=== PATIENT | female | born 1980 | race Caucasian/White ===

== ENCOUNTER 2022-08-13 16:10 | Emergency (ER) | payer OTHER ==
[2022-08-13 16:28] VITALS: TEMP 98.3; BMI 23.9
[2022-08-13] MEDS ORDERED: SODIUM CHLORIDE 0.9% 500 ML INFUS.BAG IV ONE (16:47)
[2022-08-13] MEDS ORDERED: ACETAMINOPHEN 1000 MG/100 ML BAG IVPB ONE (16:59)
[2022-08-13] MEDS ORDERED: ACETAMINOPHEN INJECTION 100 ML IVPB ONE (17:10)
[2022-08-13] MEDS ORDERED: FAMOTIDINE 20 MG/50 ML IVPB 20 MG/50 ML MG IVPB ONE ×2 (17:14→17:37)
[2022-08-13] MEDS ORDERED: MAG HYDROX/AL HYDROX/SIMETH 30 ML UNIT-DOSE CUP PO ONE (17:14)
[2022-08-13] MEDS ORDERED: MAG HYDROX/AL HYDROX/SIMETH 30 ML UNIT-DOSE CUP ONE (17:37)
[2022-08-13 17:46] LABS: BASO % 0.3 % (0-2.0); EOS % 0.1 % (0-4.5); HEMATOCRIT 38.5 % (32.4-45.2); HEMOGLOBIN 12.4 GM/dL (10.7-15.3); MCH 28.8 pg (25.7-33.7); MCHC 32.2 g/dl (32.0-36.0); MEAN CELL VOLUME 89.5 fl (80-96); MEAN PLT VOLUME 8.7 fl (7.5-11.1); MONO % 11.9 % (3.8-10.2); NEUT % 81.7 % (42.8-82.8); PLATELET COUNT 204 10^3/uL (134-434); RDW 14.3 % (11.6-15.6); WHITE BLOOD COUNT 5.1 K/mm3 (4.0-10.0)
[2022-08-13] MEDS ORDERED: ONDANSETRON 4 MG/2 ML VIAL IVPUSH ONE (17:49)
[2022-08-13 18:04] LABS: CHLORIDE 107 mmol/L (98-107); SODIUM 137 mmol/L (136-145)
[2022-08-13 18:06] LABS: CALCIUM 8.6 mg/dL (8.5-10.1)
[2022-08-13 18:07] LABS: ALBUMIN 2.7 g/dl (3.4-5.0); BLOOD UREA NITROGEN 17.8 mg/dL (7-18); CO2 21 mmol/L (21-32); GLUCOSE,RANDOM 73 mg/dL (74-106)
[2022-08-13 18:11] LABS: SGOT/AST 52 U/L (15-37)
[2022-08-13 18:12] LABS: BILIRUBIN,TOTAL 0.6 mg/dL (0.2-1); TOT PROT 6.6 g/dl (6.4-8.2)
[2022-08-13 18:13] LABS: ALK PHOS 62 U/L (45-117)
[2022-08-13] MEDS ORDERED: ONDANSETRON 4 MG/2 ML VIAL ONE (18:13)
[2022-08-13 18:19] LABS: ANION GAP 9 MMOL/L (8-16); SGPT/ALT 13 U/L (13-61)
[2022-08-13] MEDS ORDERED: ALBUTEROL SO4 2.5/IPRATROPIUM 0.5 INH SOL 3 ML VIAL.NEB. NEB ONE ×2 (18:35→19:08)
[2022-08-13 19:39] LABS: CALCIUM 7.8 mg/dL (8.5-10.1)
[2022-08-13 19:40] LABS: BLOOD UREA NITROGEN 17.9 mg/dL (7-18)
[2022-08-13 19:43] LABS: CREATININE 0.8 mg/dL (0.55-1.3)
[2022-08-13 20:25] LABS: EPI CELLS >36 /uL (0-25.1); HYALINE CASTS 1 /uL (0-3.1); PH,URINE 5.5 (5.0-8.0); URINE APPEARANCE CLEAR; URINE BACTERIA 44 /uL (0-1359); URINE BILIRUBIN NEGATIVE (NEGATIVE); URINE COLOR YELLOW; URINE GLUCOSE (UA) NEGATIVE (NEGATIVE); URINE KETONE TRACE (NEGATIVE); URINE LEUK ESTERASE TRACE (NEGATIVE); URINE NITRITE NEGATIVE (NEGATIVE); URINE PROTEIN TRACE (NEGATIVE); URINE RBC 36 /uL (0-23.9); URINE UROBILINOGEN 0.2 mg/dL (0.2-1.0); URINE WBC 165 /uL (0-25.8)
[2022-08-13 21:31] VITALS: BP 108/68; PULSE 90; RESP 18
== END 2022-08-13 21:30 | disposition home or self-care (01) ==
LOC: JER 16:10
PROC: 3E033GC Introduction of Other Therapeutic Substance into Peripheral Vein, Percutaneous Approach (ICD-10-PCS; principal; 2022-08-13)
PROC: 3E0F7GC Introduction of Other Therapeutic Substance into Respiratory Tract, Via Natural or Artificial Opening (ICD-10-PCS; 2022-08-13)
DX: U07.1 COVID-19 (principal); R53.1 Weakness
CPT/HCPCS: 0241U-QW; 36415; 71045-TC-FY; 80048; 80053; 81003; 82550; 83605; 84484; 84703; 85025; 87086; 87186; 93005; 93010; 99285-25

== ENCOUNTER 2022-08-20 15:20 | Inpatient (IN) | payer OTHER ==
[2022-08-20 15:55] VITALS: BMI 23.0
[2022-08-20] MEDS ORDERED: LACTATED RINGERS SOLUTION 1000 ML INFUS.BAG IV ONE (16:51)
[2022-08-20] MEDS ORDERED: ACETAMINOPHEN 1000 MG/100 ML BAG IVPB ONE (16:52)
[2022-08-20] MEDS ORDERED: ONDANSETRON 4 MG/2 ML VIAL IVPUSH ONE (16:53)
[2022-08-20] MEDS ORDERED: methylPREDNISolone NA SUCC 125 MG/2 ML VIAL IVPB ONE (16:58)
[2022-08-20] MEDS ORDERED: ACETAMINOPHEN INJECTION 100 ML IVPB ONE (17:10)
[2022-08-20] MEDS ORDERED: ONDANSETRON 4 MG/2 ML VIAL ONE (17:11)
[2022-08-20] MEDS ORDERED: methylPREDNISolone NA SUCC 125 MG/2 ML VIAL ONE (17:11)
[2022-08-20 17:56] LABS: BASO % 0.4 % (0-2.0); EOS % 0.1 % (0-4.5); HEMATOCRIT 35.3 % (32.4-45.2); HEMOGLOBIN 11.9 GM/dL (10.7-15.3); LYMPH % 4.5 % (8-40); MCH 29.9 pg (25.7-33.7); MCHC 33.8 g/dl (32.0-36.0); MEAN CELL VOLUME 88.4 fl (80-96); MEAN PLT VOLUME 9.7 fl (7.5-11.1); MONO % 9.5 % (3.8-10.2); NEUT % 85.5 % (42.8-82.8); PLATELET COUNT 235 10^3/uL (134-434); RBC 3.99 M/mm3 (3.60-5.2); RDW 14.5 % (11.6-15.6); WHITE BLOOD COUNT 4.4 K/mm3 (4.0-10.0)
[2022-08-20 18:13] LABS: INR 1.01 (0.83-1.09); PROTHROMBIN TIME (PATIENT) 11.6 SEC (9.7-13.0)
[2022-08-20 18:16] LABS: ACTIVATED PTT 30.6 SECONDS (25.2-36.5)
[2022-08-20 18:18] LABS: ALBUMIN 2.8 g/dl (3.4-5.0); CALCIUM 8.7 mg/dL (8.5-10.1)
[2022-08-20 18:19] LABS: BLOOD UREA NITROGEN 33.3 mg/dL (7-18)
[2022-08-20 18:21] LABS: CREATININE 1.2 mg/dL (0.55-1.3)
[2022-08-20 18:23] LABS: BILIRUBIN,TOTAL 0.3 mg/dL (0.2-1); TOT PROT 5.9 g/dl (6.4-8.2)
[2022-08-20 18:25] LABS: N-TERMINAL BNP 139.7 pg/ml (5-125)
[2022-08-20] MEDS ORDERED: CEFTRIAXONE 1 GM in DEXTROSE 5%-WATER - 100 ML IVPB ONE (21:37)
[2022-08-20] MEDS ORDERED: AZITHROMYCIN IVPB 500 MG in DEXTROSE 5%-WATER - 250 ML IVPB ONE (21:38)
[2022-08-20] MEDS ORDERED: AZITHROMYCIN IVPB 500 MG/250 ML BAG IVPB ONE (22:02)
[2022-08-20] MEDS ORDERED: CEFTRIAXONE 1 GM/50 ML BAG ONE (22:02)
[2022-08-20 22:19] LABS: PH,URINE 5.5 (5.0-8.0); URINE APPEARANCE CLEAR; URINE BILIRUBIN NEGATIVE (NEGATIVE); URINE COLOR YELLOW; URINE GLUCOSE (UA) NEGATIVE (NEGATIVE); URINE KETONE NEGATIVE (NEGATIVE); URINE LEUK ESTERASE NEGATIVE (NEGATIVE); URINE NITRITE NEGATIVE (NEGATIVE); URINE PROTEIN NEGATIVE (NEGATIVE); URINE UROBILINOGEN 0.2 mg/dL (0.2-1.0)
[2022-08-21] MEDS ORDERED: ONDANSETRON 4 MG/2 ML VIAL IVPUSH PRN (04:20)
[2022-08-21] MEDS ORDERED: ACETAMINOPHEN 650 MG/20.3 ML ORAL SOLUTION (CUPS) PO PRN (05:10)
[2022-08-21] MEDS ORDERED: ACETAMINOPHEN 325 MG TABLET (FP) ONE (05:22)
[2022-08-21 06:13] LABS: HCG,QUALITATIVE URINE Negative
[2022-08-21] MEDS ORDERED: ALBUTEROL SO4 HFA INHALER IH PRN (06:22)
[2022-08-21] MEDS ORDERED: HEPARIN NA (PORCINE) 5,000 UNITS/ML 1ML VIAL ONE (06:50)
[2022-08-21] MEDS: DEXTROSE 5%-LACTATED RINGERS 1,000 ML IV SCH ×2 (06:55→21:59)
[2022-08-21] MEDS: HEPARIN NA (PORCINE) 5,000 UNITS/ML 1ML VIAL SQ SCH ×3 (06:55→21:29)
[2022-08-21] MEDS ORDERED: predniSONE 20 MG TABLET (UD) ONE (08:48)
[2022-08-21] MEDS ORDERED: FAMOTIDINE 20 MG/50 ML IVPB 20 MG/50 ML MG IVPB ONE (08:48)
[2022-08-21] MEDS ORDERED: PANTOPRAZOLE 40 MG TABLET PO ONE (08:48)
[2022-08-21] MEDS ORDERED: PANTOPRAZOLE 20 MG TABLET PO ONE (09:22)
[2022-08-21] MEDS: HYDROXYCHLOROQUINE SO4 200 MG TABLET (FP) PO SCH ×2 (09:24→22:37)
[2022-08-21] MEDS: predniSONE 20 MG TABLET (UD) PO SCH ×2 (09:24→21:29)
[2022-08-21] MEDS: azaTHIOprine 50 MG TABLET PO SCH (09:24)
[2022-08-21] MEDS: PANTOPRAZOLE 20 MG TABLET PO SCH (09:24)
[2022-08-21] MEDS: FAMOTIDINE 20 MG/50 ML IVPB 20 MG/50 ML MG IVPB SCH ×2 (09:24→21:28)
[2022-08-21 09:33] LABS: HEMATOCRIT 33.2 % (32.4-45.2); HEMOGLOBIN 11.1 GM/dL (10.7-15.3); MCH 29.5 pg (25.7-33.7); MCHC 33.4 g/dl (32.0-36.0); MEAN CELL VOLUME 88.3 fl (80-96); MEAN PLT VOLUME 9.3 fl (7.5-11.1); PLATELET COUNT 223 10^3/uL (134-434); RBC 3.76 M/mm3 (3.60-5.2); RDW 14.4 % (11.6-15.6)
[2022-08-21 09:38] LABS: WHITE BLOOD COUNT 1.6 K/mm3 (4.0-10.0)
[2022-08-21 09:55] LABS: BLOOD UREA NITROGEN 26.4 mg/dL (7-18); CALCIUM 8.3 mg/dL (8.5-10.1)
[2022-08-21 09:56] LABS: ALBUMIN 2.7 g/dl (3.4-5.0)
[2022-08-21 09:58] LABS: PHOSPHOROUS 3.8 mg/dL (2.5-4.9)
[2022-08-21 10:00] LABS: TOT PROT 5.7 g/dl (6.4-8.2)
[2022-08-21 10:04] LABS: BILIRUBIN,TOTAL 0.3 mg/dL (0.2-1)
[2022-08-21 10:28] LABS: ANISOCYTOSIS 0; MACROCYTOSIS 0
[2022-08-21] MEDS ORDERED: PNEUMOC 20-VAL CONJ-DIP CRM/PF 0.5 ML SYRINGE IM ONE (19:18)
[2022-08-21] MEDS ORDERED: FLU VACC QS2022-23(6MOS UP)/PF 60 MCG/0.5 ML SYRINGE IM ONE (20:00)
[2022-08-21] MEDS: PIPERACILLIN/TAZOB 3.375 GM 3.375 GM in DEXTROSE 5%-WATER - 50 ML IVPB SCH (20:05)
[2022-08-21] MEDS: oxyCODONE HCL 5 MG TABLET PO PRN (22:34)
[2022-08-21] MEDS: ZOLPIDEM TARTRATE 5 MG TABLET PO PRN (22:34)
[2022-08-22] MEDS: PIPERACILLIN/TAZOB 3.375 GM 3.375 GM in DEXTROSE 5%-WATER - 50 ML IVPB SCH ×2 (03:17→11:28)
[2022-08-22] MEDS: HEPARIN NA (PORCINE) 5,000 UNITS/ML 1ML VIAL SQ SCH ×3 (05:34→21:43)
[2022-08-22 09:05] LABS: BASO % 0.1 % (0-2.0); HEMATOCRIT 36.9 % (32.4-45.2); HEMOGLOBIN 12.1 GM/dL (10.7-15.3); LYMPH % 3.7 % (8-40); MCH 29.2 pg (25.7-33.7); MCHC 32.7 g/dl (32.0-36.0); MEAN CELL VOLUME 89.2 fl (80-96); MEAN PLT VOLUME 9.6 fl (7.5-11.1); MONO % 5.7 % (3.8-10.2); NEUT % 90.5 % (42.8-82.8); PLATELET COUNT 314 10^3/uL (134-434); RBC 4.14 M/mm3 (3.60-5.2); RDW 14.5 % (11.6-15.6); WHITE BLOOD COUNT 6.8 K/mm3 (4.0-10.0)
[2022-08-22] MEDS: FAMOTIDINE 20 MG/50 ML IVPB 20 MG/50 ML MG IVPB SCH ×2 (11:26→21:43)
[2022-08-22] MEDS: HYDROXYCHLOROQUINE SO4 200 MG TABLET (FP) PO SCH ×2 (11:27→22:07)
[2022-08-22] MEDS: PANTOPRAZOLE 20 MG TABLET PO SCH (11:27)
[2022-08-22] MEDS: azaTHIOprine 50 MG TABLET PO SCH (11:27)
[2022-08-22] MEDS: predniSONE 20 MG TABLET (UD) PO SCH ×2 (11:27→21:44)
[2022-08-22] MEDS: DEXTROSE 5%-LACTATED RINGERS 1,000 ML IV SCH (14:54)
[2022-08-22] MEDS ORDERED: CEFPODOXIME PROXETIL 100 MG TABLET PO ONE (18:00)
[2022-08-22] MEDS: ACETAMINOPHEN 325 MG TABLET (FP) PO PRN (21:43)
[2022-08-22] MEDS: ZOLPIDEM TARTRATE 5 MG TABLET PO PRN (21:44)
[2022-08-22] MEDS: oxyCODONE HCL 5 MG TABLET PO PRN (21:44)
[2022-08-23] MEDS: HEPARIN NA (PORCINE) 5,000 UNITS/ML 1ML VIAL SQ SCH ×3 (05:36→21:47)
[2022-08-23] MEDS: DEXTROSE 5%-LACTATED RINGERS 1,000 ML IV SCH (05:37)
[2022-08-23] MEDS: predniSONE 20 MG TABLET (UD) PO SCH ×2 (09:44→21:47)
[2022-08-23] MEDS: PANTOPRAZOLE 40 MG TABLET PO SCH (09:44)
[2022-08-23] MEDS: HYDROXYCHLOROQUINE SO4 200 MG TABLET (FP) PO SCH ×2 (09:44→21:47)
[2022-08-23] MEDS ORDERED: CEFPODOXIME PROXETIL 100 MG TABLET PO SCH (10:00)
[2022-08-23] MEDS: azaTHIOprine 50 MG TABLET PO SCH (11:46)
[2022-08-23] MEDS ORDERED: CEFPODOXIME PROXETIL 200 MG TABLET [NF] PO ONE (12:00)
[2022-08-23] MEDS: BACITRACIN ZINC 15 GM TUBE TOPICAL OINTMENT TP SCH (12:28)
[2022-08-23 13:08] LABS: HEMOGLOBIN 10.9 GM/dL (10.7-15.3); MCH 29.4 pg (25.7-33.7); MEAN CELL VOLUME 89.3 fl (80-96); MEAN PLT VOLUME 9.2 fl (7.5-11.1); PLATELET COUNT 231 10^3/uL (134-434); RBC 3.69 M/mm3 (3.60-5.2); RDW 14.2 % (11.6-15.6); WHITE BLOOD COUNT 6.2 K/mm3 (4.0-10.0)
[2022-08-23 13:30] LABS: CALCIUM 8.3 mg/dL (8.5-10.1)
[2022-08-23 13:31] LABS: BLOOD UREA NITROGEN 15.5 mg/dL (7-18)
[2022-08-23 13:34] LABS: CREATININE 0.8 mg/dL (0.55-1.3)
[2022-08-23 14:09] LABS: ANISOCYTOSIS 0; HELMET CELLS 0; HOWELL-JOLLY BODIES 0; MACROCYTOSIS 0; OVALOCYTE 0; ROULEAU 0; SICKELED CELLS 0; TARGET CELLS 0; TEAR DROP CELLS 0; TOXIC GRANULATION 0
[2022-08-23] MEDS: CEFPODOXIME PROXETIL 200 MG TABLET [NF] PO SCH (17:47)
[2022-08-23] MEDS: oxyCODONE HCL 5 MG TABLET PO PRN (23:37)
[2022-08-23] MEDS: ZOLPIDEM TARTRATE 5 MG TABLET PO PRN (23:37)
[2022-08-24] MEDS: HEPARIN NA (PORCINE) 5,000 UNITS/ML 1ML VIAL SQ SCH ×3 (05:32→21:56)
[2022-08-24] MEDS: CEFPODOXIME PROXETIL 200 MG TABLET [NF] PO SCH ×2 (09:02→17:43)
[2022-08-24] MEDS: PANTOPRAZOLE 40 MG TABLET PO SCH (09:03)
[2022-08-24] MEDS: predniSONE 20 MG TABLET (UD) PO SCH ×2 (09:03→21:56)
[2022-08-24] MEDS: HYDROXYCHLOROQUINE SO4 200 MG TABLET (FP) PO SCH ×2 (09:03→21:56)
[2022-08-24] MEDS: azaTHIOprine 50 MG TABLET PO SCH (09:04)
[2022-08-24] MEDS: BACITRACIN ZINC 15 GM TUBE TOPICAL OINTMENT TP SCH (09:21)
[2022-08-24] MEDS: FLUCONAZOLE 100 MG/NS 50 ML IVPB SCH (20:50)
[2022-08-24] MEDS: ZOLPIDEM TARTRATE 5 MG TABLET PO PRN (22:01)
[2022-08-25] MEDS: HEPARIN NA (PORCINE) 5,000 UNITS/ML 1ML VIAL SQ SCH ×3 (05:36→21:53)
[2022-08-25] MEDS: CEFPODOXIME PROXETIL 200 MG TABLET [NF] PO SCH ×2 (08:39→17:07)
[2022-08-25 09:04] LABS: HEMATOCRIT 35.4 % (32.4-45.2); HEMOGLOBIN 11.6 GM/dL (10.7-15.3); MCH 29.3 pg (25.7-33.7); MCHC 32.8 g/dl (32.0-36.0); MEAN CELL VOLUME 89.2 fl (80-96); PLATELET COUNT 240 10^3/uL (134-434); RBC 3.97 M/mm3 (3.60-5.2); RDW 14.3 % (11.6-15.6); WHITE BLOOD COUNT 3.7 K/mm3 (4.0-10.0)
[2022-08-25 09:26] LABS: ALBUMIN 2.3 g/dl (3.4-5.0); CALCIUM 8.5 mg/dL (8.5-10.1)
[2022-08-25 09:27] LABS: BLOOD UREA NITROGEN 15.6 mg/dL (7-18); MAGNESIUM 1.8 mg/dL (1.8-2.4)
[2022-08-25 09:29] LABS: CREATININE 0.8 mg/dL (0.55-1.3); PHOSPHOROUS 3.6 mg/dL (2.5-4.9)
[2022-08-25 09:31] LABS: BILIRUBIN,TOTAL 0.3 mg/dL (0.2-1)
[2022-08-25] MEDS: BACITRACIN ZINC 15 GM TUBE TOPICAL OINTMENT TP SCH (11:16)
[2022-08-25] MEDS: azaTHIOprine 50 MG TABLET PO SCH (11:17)
[2022-08-25] MEDS: predniSONE 20 MG TABLET (UD) PO SCH ×2 (11:17→21:53)
[2022-08-25] MEDS: HYDROXYCHLOROQUINE SO4 200 MG TABLET (FP) PO SCH ×2 (11:17→21:53)
[2022-08-25] MEDS: PANTOPRAZOLE 40 MG TABLET PO SCH (11:17)
[2022-08-25] MEDS: FLUCONAZOLE 100 MG/NS 50 ML IVPB SCH ×2 (11:18→13:09)
[2022-08-25] MEDS: ACETAMINOPHEN 325 MG TABLET (FP) PO PRN (22:45)
[2022-08-25] MEDS: ZOLPIDEM TARTRATE 5 MG TABLET PO PRN (22:45)
[2022-08-25] MEDS: oxyCODONE HCL 5 MG TABLET PO PRN (22:45)
[2022-08-26] MEDS: HEPARIN NA (PORCINE) 5,000 UNITS/ML 1ML VIAL SQ SCH ×3 (05:59→21:05)
[2022-08-26] MEDS: CEFPODOXIME PROXETIL 200 MG TABLET [NF] PO SCH ×2 (08:24→17:20)
[2022-08-26] MEDS ORDERED: SODIUM CHLORIDE 1,000 ML IV STA (09:09)
[2022-08-26 09:11] LABS: MCH 29.5 pg (25.7-33.7); MCHC 33.3 g/dl (32.0-36.0); MEAN CELL VOLUME 88.6 fl (80-96); MEAN PLT VOLUME 9.6 fl (7.5-11.1); PLATELET COUNT 296 10^3/uL (134-434); RDW 14.3 % (11.6-15.6); WHITE BLOOD COUNT 4.5 K/mm3 (4.0-10.0)
[2022-08-26] MEDS: PANTOPRAZOLE 40 MG TABLET PO SCH (09:23)
[2022-08-26] MEDS: predniSONE 20 MG TABLET (UD) PO SCH (09:23)
[2022-08-26] MEDS: azaTHIOprine 50 MG TABLET PO SCH (09:24)
[2022-08-26] MEDS: HYDROXYCHLOROQUINE SO4 200 MG TABLET (FP) PO SCH ×2 (09:24→21:05)
[2022-08-26] MEDS: BACITRACIN ZINC 15 GM TUBE TOPICAL OINTMENT TP SCH (09:26)
[2022-08-26 09:33] LABS: CALCIUM 8.8 mg/dL (8.5-10.1)
[2022-08-26 09:37] LABS: BLOOD UREA NITROGEN 16.4 mg/dL (7-18)
[2022-08-26 09:38] LABS: ALBUMIN 2.6 g/dl (3.4-5.0); MAGNESIUM 1.8 mg/dL (1.8-2.4)
[2022-08-26 09:40] LABS: CREATININE 0.8 mg/dL (0.55-1.3); PHOSPHOROUS 3.6 mg/dL (2.5-4.9)
[2022-08-26 09:41] LABS: TOT PROT 5.6 g/dl (6.4-8.2)
[2022-08-26 09:42] LABS: BILIRUBIN,TOTAL 0.3 mg/dL (0.2-1)
[2022-08-26 10:37] LABS: ANISOCYTOSIS 0; HELMET CELLS 0; HOWELL-JOLLY BODIES 0; MACROCYTOSIS 0; OVALOCYTE 0; ROULEAU 0; SICKELED CELLS 0; TARGET CELLS 0; TEAR DROP CELLS 0; TOXIC GRANULATION 0
[2022-08-26] MEDS ORDERED: ACETAMINOPHEN 650 MG/20.3 ML ORAL SOLUTION (CUPS) PO PRN (23:08)
[2022-08-26] MEDS ORDERED: ONDANSETRON 4 MG/2 ML VIAL IVPUSH PRN (23:08)
[2022-08-26] MEDS ORDERED: ALBUTEROL SO4 HFA INHALER IH PRN (23:08)
[2022-08-26] MEDS: ZOLPIDEM TARTRATE 5 MG TABLET PO PRN (23:41)
[2022-08-27] MEDS: HEPARIN NA (PORCINE) 5,000 UNITS/ML 1ML VIAL SQ SCH ×3 (05:27→21:05)
[2022-08-27] MEDS ORDERED: SODIUM CHLORIDE 500 ML IV STA (05:36)
[2022-08-27 09:26] LABS: HEMATOCRIT 32.6 % (32.4-45.2); MCHC 33.7 g/dl (32.0-36.0); MEAN CELL VOLUME 88.9 fl (80-96); MEAN PLT VOLUME 9.4 fl (7.5-11.1); PLATELET COUNT 224 10^3/uL (134-434); RBC 3.67 M/mm3 (3.60-5.2); RDW 14.5 % (11.6-15.6); WHITE BLOOD COUNT 4.9 K/mm3 (4.0-10.0)
[2022-08-27 09:47] LABS: CALCIUM 7.7 mg/dL (8.5-10.1)
[2022-08-27 09:48] LABS: ALBUMIN 2.1 g/dl (3.4-5.0); MAGNESIUM 1.6 mg/dL (1.8-2.4)
[2022-08-27 09:50] LABS: PHOSPHOROUS 2.3 mg/dL (2.5-4.9)
[2022-08-27 09:51] LABS: CREATININE 0.7 mg/dL (0.55-1.3)
[2022-08-27 09:52] LABS: BILIRUBIN,TOTAL 0.3 mg/dL (0.2-1); TOT PROT 4.5 g/dl (6.4-8.2)
[2022-08-27 10:15] LABS: ANISOCYTOSIS 2+; MACROCYTOSIS 0; OVALOCYTE 1+
[2022-08-27] MEDS: predniSONE 20 MG TABLET (UD) PO SCH (10:34)
[2022-08-27] MEDS: PANTOPRAZOLE 40 MG TABLET PO SCH (10:34)
[2022-08-27] MEDS: azaTHIOprine 50 MG TABLET PO SCH (10:34)
[2022-08-27] MEDS: HYDROXYCHLOROQUINE SO4 200 MG TABLET (FP) PO SCH ×2 (10:35→21:05)
[2022-08-27] MEDS: CEFPODOXIME PROXETIL 200 MG TABLET [NF] PO SCH ×2 (10:36→17:09)
[2022-08-27] MEDS: BACITRACIN ZINC 15 GM TUBE TOPICAL OINTMENT TP SCH ×2 (10:36→10:53)
[2022-08-27] MEDS ORDERED: MAGNESIUM SULF 50% (8.12 MEQ/2 ML-1 GM VIAL) IVPB ONE (14:33)
[2022-08-27] MEDS: MIDODRINE HCL 2.5 MG TABLET PO SCH (17:09)
[2022-08-27] MEDS: NYSTATIN 500,000 UNITS/5 ML SUSPENSION PO SCH (17:09)
[2022-08-28] MEDS: ZOLPIDEM TARTRATE 5 MG TABLET PO PRN (00:21)
[2022-08-28] MEDS: NYSTATIN 500,000 UNITS/5 ML SUSPENSION PO SCH ×5 (00:21→23:16)
[2022-08-28] MEDS: oxyCODONE HCL 5 MG TABLET PO PRN ×2 (00:21→12:08)
[2022-08-28] MEDS: ACETAMINOPHEN 325 MG TABLET (FP) PO PRN ×2 (00:26→12:08)
[2022-08-28] MEDS: HEPARIN NA (PORCINE) 5,000 UNITS/ML 1ML VIAL SQ SCH ×3 (06:16→21:13)
[2022-08-28] MEDS: CEFPODOXIME PROXETIL 200 MG TABLET [NF] PO SCH ×2 (09:28→17:03)
[2022-08-28] MEDS: MIDODRINE HCL 2.5 MG TABLET PO SCH ×2 (09:28→18:25)
[2022-08-28] MEDS: PANTOPRAZOLE 40 MG TABLET PO SCH (09:28)
[2022-08-28] MEDS: HYDROXYCHLOROQUINE SO4 200 MG TABLET (FP) PO SCH ×2 (09:28→21:10)
[2022-08-28] MEDS: predniSONE 20 MG TABLET (UD) PO SCH (09:28)
[2022-08-28] MEDS: azaTHIOprine 50 MG TABLET PO SCH (09:28)
[2022-08-28] MEDS: BACITRACIN ZINC 15 GM TUBE TOPICAL OINTMENT TP SCH (09:29)
[2022-08-28 09:48] LABS: BASO % 0.2 % (0-2.0); EOS % 0.5 % (0-4.5); HEMATOCRIT 34.3 % (32.4-45.2); HEMOGLOBIN 11.6 GM/dL (10.7-15.3); LYMPH % 4.7 % (8-40); MCH 30.1 pg (25.7-33.7); MCHC 33.8 g/dl (32.0-36.0); MEAN CELL VOLUME 89.3 fl (80-96); MEAN PLT VOLUME 9.4 fl (7.5-11.1); MONO % 6.4 % (3.8-10.2); NEUT % 88.2 % (42.8-82.8); PLATELET COUNT 236 10^3/uL (134-434); RBC 3.85 M/mm3 (3.60-5.2); RDW 14.2 % (11.6-15.6); WHITE BLOOD COUNT 3.8 K/mm3 (4.0-10.0)
[2022-08-28 10:03] LABS: ALBUMIN 2.4 g/dl (3.4-5.0); BLOOD UREA NITROGEN 10.8 mg/dL (7-18)
[2022-08-28 10:05] LABS: CREATININE 0.8 mg/dL (0.55-1.3)
[2022-08-28 10:06] LABS: PHOSPHOROUS 2.5 mg/dL (2.5-4.9)
[2022-08-28 10:07] LABS: BILIRUBIN,TOTAL 0.4 mg/dL (0.2-1)
[2022-08-28] MEDS: MAG HYDROX/ALH/SMC/DPHA/LIDO 240 ML MOUTHWASH MM SCH ×2 (13:13→17:04)
[2022-08-28] MEDS ORDERED: BENZOCAINE 20 % GEL TUBE MM SCH (13:30)
[2022-08-28] MEDS: BENZOCAINE 20 % GEL TUBE MM SCH ×2 (17:04→23:16)
[2022-08-29] MEDS: ZOLPIDEM TARTRATE 5 MG TABLET PO PRN ×2 (00:18→23:06)
[2022-08-29] MEDS: MAG HYDROX/ALH/SMC/DPHA/LIDO 240 ML MOUTHWASH MM SCH ×5 (00:19→23:05)
[2022-08-29] MEDS: oxyCODONE HCL 5 MG TABLET PO PRN ×2 (00:19→09:39)
[2022-08-29] MEDS: ACETAMINOPHEN 325 MG TABLET (FP) PO PRN (00:23)
[2022-08-29] MEDS: HEPARIN NA (PORCINE) 5,000 UNITS/ML 1ML VIAL SQ SCH ×3 (06:46→21:01)
[2022-08-29] MEDS: BENZOCAINE 20 % GEL TUBE MM SCH ×4 (06:46→23:05)
[2022-08-29] MEDS: NYSTATIN 500,000 UNITS/5 ML SUSPENSION PO SCH ×4 (07:08→23:11)
[2022-08-29] MEDS: CEFPODOXIME PROXETIL 200 MG TABLET [NF] PO SCH ×2 (08:33→17:44)
[2022-08-29 09:19] LABS: BASO % 0.2 % (0-2.0); EOS % 0.4 % (0-4.5); HEMATOCRIT 32.7 % (32.4-45.2); HEMOGLOBIN 11.1 GM/dL (10.7-15.3); LYMPH % 5.2 % (8-40); MCH 30.2 pg (25.7-33.7); MCHC 33.8 g/dl (32.0-36.0); MEAN CELL VOLUME 89.4 fl (80-96); MEAN PLT VOLUME 9.3 fl (7.5-11.1); MONO % 6.9 % (3.8-10.2); NEUT % 87.3 % (42.8-82.8); PLATELET COUNT 174 10^3/uL (134-434); RBC 3.66 M/mm3 (3.60-5.2); RDW 14.6 % (11.6-15.6); WHITE BLOOD COUNT 3.9 K/mm3 (4.0-10.0)
[2022-08-29 09:23] LABS: ALBUMIN 2.3 g/dl (3.4-5.0); BLOOD UREA NITROGEN 11.6 mg/dL (7-18); CALCIUM 7.8 mg/dL (8.5-10.1); MAGNESIUM 1.8 mg/dL (1.8-2.4)
[2022-08-29 09:26] LABS: CREATININE 0.8 mg/dL (0.55-1.3)
[2022-08-29 09:27] LABS: PHOSPHOROUS 2.7 mg/dL (2.5-4.9)
[2022-08-29 09:28] LABS: BILIRUBIN,TOTAL 0.4 mg/dL (0.2-1); TOT PROT 4.7 g/dl (6.4-8.2)
[2022-08-29] MEDS: PANTOPRAZOLE 40 MG TABLET PO SCH (09:32)
[2022-08-29] MEDS: azaTHIOprine 50 MG TABLET PO SCH (09:32)
[2022-08-29] MEDS: HYDROXYCHLOROQUINE SO4 200 MG TABLET (FP) PO SCH ×2 (09:33→21:01)
[2022-08-29] MEDS: predniSONE 20 MG TABLET (UD) PO SCH (09:33)
[2022-08-29] MEDS: FOLIC ACID 1 MG TABLET (FP) PO SCH (09:33)
[2022-08-29] MEDS: BACITRACIN ZINC 15 GM TUBE TOPICAL OINTMENT TP SCH (10:15)
[2022-08-29] MEDS: MULTIVITAMINS (DAILY MVI) TABLET (FP) PO SCH (10:44)
[2022-08-29] MEDS: ZINC SULFATE 220 MG CAPSULE (FP) PO SCH (11:10)
[2022-08-29] MEDS: MIDODRINE HCL 5 MG TABLET PO SCH ×2 (14:33→17:44)
[2022-08-29] MEDS ORDERED: POTASSIUM CHLORIDE TABS 10 MEQ TABLET.ER (FP) PO ONE (14:47)
[2022-08-29] MEDS ORDERED: MAGNESIUM OXIDE 400 MG TABLET (FP) PO ONE (14:49)
[2022-08-30] MEDS: MAG HYDROX/ALH/SMC/DPHA/LIDO 240 ML MOUTHWASH MM SCH ×2 (05:59→12:36)
[2022-08-30] MEDS: BENZOCAINE 20 % GEL TUBE MM SCH ×2 (05:59→12:36)
[2022-08-30] MEDS: NYSTATIN 500,000 UNITS/5 ML SUSPENSION PO SCH ×2 (05:59→12:36)
[2022-08-30] MEDS: HEPARIN NA (PORCINE) 5,000 UNITS/ML 1ML VIAL SQ SCH ×2 (05:59→16:16)
[2022-08-30] MEDS ORDERED: POTASSIUM CHLORIDE TABS 20 MEQ TABLET.ER (FP) PO SCH (10:00)
[2022-08-30] MEDS: predniSONE 20 MG TABLET (UD) PO SCH (10:31)
[2022-08-30] MEDS: MIDODRINE HCL 5 MG TABLET PO SCH ×2 (10:33→14:16)
[2022-08-30] MEDS: FOLIC ACID 1 MG TABLET (FP) PO SCH (10:33)
[2022-08-30] MEDS: MULTIVITAMINS (DAILY MVI) TABLET (FP) PO SCH (10:33)
[2022-08-30] MEDS: PANTOPRAZOLE 40 MG TABLET PO SCH (10:33)
[2022-08-30] MEDS: ZINC SULFATE 220 MG CAPSULE (FP) PO SCH (10:33)
[2022-08-30] MEDS: azaTHIOprine 50 MG TABLET PO SCH (10:34)
[2022-08-30] MEDS: BACITRACIN ZINC 15 GM TUBE TOPICAL OINTMENT TP SCH (10:34)
[2022-08-30] MEDS: HYDROXYCHLOROQUINE SO4 200 MG TABLET (FP) PO SCH (10:34)
[2022-08-30 15:03] VITALS: BP 98/60; PULSE 92; RESP 16; TEMP 100
== END 2022-08-30 19:58 | disposition home or self-care (01) | DRG 193 ==
LOC: JER 15:20 → JERBED 22:31 → J7W 08-21 12:44 → J4S 08-25 22:26
PROVIDERS: ADMIT Internal Medicine; ATTEND Internal Medicine
DX: J18.9 Pneumonia, unspecified organism (principal); E43 Unspecified severe protein-calorie malnutrition; B37.0 Candidal stomatitis; I31.39 Other pericardial effusion (noninflammatory); N17.9 Acute kidney failure, unspecified; R64 Cachexia; U09.9 Post COVID-19 condition, unspecified; M32.9 Systemic lupus erythematosus, unspecified; K52.9 Noninfective gastroenteritis and colitis, unspecified; M32.14 Glomerular disease in systemic lupus erythematosus; K21.9 Gastro-esophageal reflux disease without esophagitis; R13.10 Dysphagia, unspecified; B37.9 Candidiasis, unspecified; I73.00 Raynaud's syndrome without gangrene; R00.1 Bradycardia, unspecified; R07.81 Pleurodynia; K44.9 Diaphragmatic hernia without obstruction or gangrene; K80.20 Calculus of gallbladder without cholecystitis without obstruction; N20.0 Calculus of kidney; M35.00 Sjogren syndrome, unspecified; Z68.20 Body mass index [BMI] 20.0-20.9, adult
CPT/HCPCS: 0241U-QW; 36415; 71045-TC-FY; 71275-TC; 74176-TC; 74220-TC-FY; 74240-TC-FY; 76775-TC; 80048; 80053; 80061; 81003; 82308; 82607; 82746; 83036; 83605; 83690; 83735; 83880; 84100; 84439; 84443; 84481; 84484; 84703; 85025; 85610; 85651; 85730; 86140; 87040; 87086; 93005; 93010; 93306-TC; 97116-GP; 97161-GP; 99285-25; G0008; J1644; Q2036; Q9967

== ENCOUNTER 2022-09-10 18:20 | Inpatient (IN) | payer OTHER ==
[2022-09-10] MEDS ORDERED: ACETAMINOPHEN 1000 MG/100 ML BAG IVPB ONE (20:21)
[2022-09-10] MEDS ORDERED: PANTOPRAZOLE SODIUM 40 MG VIAL IVPUSH ONE (20:22)
[2022-09-10] MEDS ORDERED: ACETAMINOPHEN INJECTION 100 ML IVPB ONE (20:31)
[2022-09-10] MEDS ORDERED: PANTOPRAZOLE SODIUM 40 MG/100 ML BAG IVPB ONE (20:32)
[2022-09-10 21:15] LABS: HEMATOCRIT 32.1 % (32.4-45.2); HEMOGLOBIN 10.6 GM/dL (10.7-15.3); MCH 29.6 pg (25.7-33.7); MCHC 32.9 g/dl (32.0-36.0); MEAN CELL VOLUME 90.1 fl (80-96); MEAN PLT VOLUME 9.7 fl (7.5-11.1); PLATELET COUNT 171 10^3/uL (134-434); RBC 3.56 M/mm3 (3.60-5.2); RDW 15.4 % (11.6-15.6)
[2022-09-10 21:25] LABS: WHITE BLOOD COUNT 0.3 K/mm3 (4.0-10.0)
[2022-09-10 21:52] LABS: ALBUMIN 2.6 g/dl (3.4-5.0); BLOOD UREA NITROGEN 28.7 mg/dL (7-18); CALCIUM 8.6 mg/dL (8.5-10.1)
[2022-09-10 21:56] LABS: CREATININE 1.5 mg/dL (0.55-1.3); MAGNESIUM 2.1 mg/dL (1.8-2.4)
[2022-09-10 21:58] LABS: BILIRUBIN,TOTAL 0.6 mg/dL (0.2-1); TOT PROT 6.3 g/dl (6.4-8.2)
[2022-09-10 21:59] LABS: PHOSPHOROUS 4.1 mg/dL (2.5-4.9)
[2022-09-10 22:50] LABS: ANISOCYTOSIS 1+; MACROCYTOSIS 1+; OVALOCYTE 1+
[2022-09-11] MEDS ORDERED: LACTATED RINGERS SOLUTION 1000 ML INFUS.BAG IV ONE (00:17)
[2022-09-11 01:20] LABS: EPI CELLS 30 /uL (0-25.1); HYALINE CASTS 6 /uL (0-3.1); PH,URINE 5.5 (5.0-8.0); URINE APPEARANCE CLOUDY; URINE BACTERIA 56 /uL (0-1359); URINE BILIRUBIN NEGATIVE (NEGATIVE); URINE COLOR YELLOW; URINE GLUCOSE (UA) NEGATIVE (NEGATIVE); URINE KETONE NEGATIVE (NEGATIVE); URINE LEUK ESTERASE NEGATIVE (NEGATIVE); URINE NITRITE NEGATIVE (NEGATIVE); URINE PROTEIN 1+ (NEGATIVE); URINE RBC 26 /uL (0-23.9); URINE UROBILINOGEN 0.2 mg/dL (0.2-1.0); URINE WBC 13 /uL (0-25.8)
[2022-09-11] MEDS ORDERED: VANCOMYCIN 1 GM in D5W (PRE-DOCKED) 1,000 MG/250 ML IVPB SCH (02:00)
[2022-09-11] MEDS ORDERED: LACTATED RINGERS SOLUTION 1,000 ML/1,000 ML INFUS.BAG IV SCH (02:00)
[2022-09-11] MEDS ORDERED: VANCOMYCIN 500 MG in DEXTROSE 5%-WATER - 100 ML IVPB SCH (02:15)
[2022-09-11] MEDS ORDERED: FLUCONAZOLE 200 MG/NS 100 ML IVPB ONE (02:38)
[2022-09-11] MEDS ORDERED: ONDANSETRON *ODT* 4 MG TABLET SL PRN (03:05)
[2022-09-11] MEDS ORDERED: DOXYCYCLINE INJECTION 100 MG in DEXTROSE 5%-WATER 100 ML IVPB SCH ×2 (03:46→10:00)
[2022-09-11] MEDS ORDERED: PROCHLORPERAZINE INJECTION 10 MG/2 ML VIAL IVPB PRN (04:05)
[2022-09-11] MEDS ORDERED: PIPERACILLIN/TAZOB 2.25 GM 2.25 GM/50 ML BAG IVPB ONE (05:37)
[2022-09-11] MEDS: PIPERACILLIN/TAZOB 2.25 GM 2.25 GM in DEXTROSE 5%-WATER - 50 ML IVPB SCH ×5 (05:41→17:20)
[2022-09-11] MEDS ORDERED: HEPARIN NA (PORCINE) 5,000 UNITS/ML 1ML VIAL ONE (05:43)
[2022-09-11] MEDS ORDERED: NYSTATIN 500,000 UNITS/5 ML SUSPENSION PO SCH (06:00)
[2022-09-11] MEDS: HEPARIN NA (PORCINE) 5,000 UNITS/ML 1ML VIAL SQ SCH ×3 (06:03→22:38)
[2022-09-11 06:48] LABS: HEMATOCRIT 29.4 % (32.4-45.2); HEMOGLOBIN 9.7 GM/dL (10.7-15.3); MCH 29.7 pg (25.7-33.7); MEAN PLT VOLUME 10.3 fl (7.5-11.1); PLATELET COUNT 128 10^3/uL (134-434); RBC 3.27 M/mm3 (3.60-5.2); RDW 15.5 % (11.6-15.6)
[2022-09-11 06:57] LABS: MAGNESIUM 1.9 mg/dL (1.8-2.4)
[2022-09-11 06:58] LABS: CALCIUM 8.3 mg/dL (8.5-10.1)
[2022-09-11 07:00] LABS: ALBUMIN 2.3 g/dl (3.4-5.0); BLOOD UREA NITROGEN 30.4 mg/dL (7-18)
[2022-09-11 07:01] LABS: CREATININE 1.3 mg/dL (0.55-1.3)
[2022-09-11 07:02] LABS: PHOSPHOROUS 4.7 mg/dL (2.5-4.9); TOT PROT 5.2 g/dl (6.4-8.2)
[2022-09-11 07:04] LABS: BILIRUBIN,TOTAL 0.4 mg/dL (0.2-1)
[2022-09-11 07:12] LABS: WHITE BLOOD COUNT 0.4 K/mm3 (4.0-10.0)
[2022-09-11] MEDS ORDERED: TBO-FILGRASTIM 300 MCG/0.5 ML DISP.SYRINGE SQ ONE (08:25)
[2022-09-11 09:23] LABS: ANISOCYTOSIS 2+; MACROCYTOSIS 0; PLATELET ESTIMATE DECREASED
[2022-09-11] MEDS: DEXTROSE 5%-LACTATED RINGERS 1,000 ML IV SCH ×2 (09:38→23:45)
[2022-09-11] MEDS: VANCOMYCIN 500 MG in DEXTROSE 5%-WATER - 100 ML IVPB SCH ×2 (09:39→18:22)
[2022-09-11] MEDS: MIDODRINE HCL 5 MG TABLET PO SCH ×3 (09:50→17:20)
[2022-09-11] MEDS: FOLIC ACID 1 MG TABLET (FP) PO SCH (09:50)
[2022-09-11] MEDS: MULTIVITAMINS (DAILY MVI) TABLET (FP) PO SCH (09:51)
[2022-09-11] MEDS: ZINC SULFATE 220 MG CAPSULE (FP) PO SCH (09:51)
[2022-09-11] MEDS ORDERED: HYDROXYCHLOROQUINE SO4 200 MG TABLET (FP) PO SCH (10:00)
[2022-09-11] MEDS ORDERED: predniSONE 2.5 MG TABLET PO SCH (10:00)
[2022-09-11] MEDS ORDERED: azaTHIOprine 50 MG TABLET PO SCH ×2 (10:00)
[2022-09-11] MEDS ORDERED: ACETAMINOPHEN 1000 MG/100 ML BAG IVPB PRN (10:02)
[2022-09-11] MEDS: ACETAMINOPHEN 1000 MG/100 ML BAG IVPB PRN (10:32)
[2022-09-11] MEDS ORDERED: MAG HYDROX/AL HYDROX/SIMETH 30 ML UNIT-DOSE CUP PO PRN (10:46)
[2022-09-11] MEDS: NYSTATIN 500,000 UNITS/5 ML SUSPENSION PO SCH ×2 (12:11→17:20)
[2022-09-11 13:14] VITALS: BMI 19.1
[2022-09-11] MEDS: ATORVASTATIN CA 20 MG TABLET (FP) PO SCH (22:38)
[2022-09-11] MEDS: FLUCONAZOLE 100 MG/NS 50 ML IVPB SCH (22:38)
[2022-09-11] MEDS: ZOLPIDEM TARTRATE 5 MG TABLET PO PRN (23:45)
[2022-09-12] MEDS: PIPERACILLIN/TAZOB 2.25 GM 2.25 GM in DEXTROSE 5%-WATER - 50 ML IVPB SCH ×4 (00:54→21:06)
[2022-09-12] MEDS: NYSTATIN 500,000 UNITS/5 ML SUSPENSION PO SCH ×5 (00:54→23:08)
[2022-09-12] MEDS: ACETAMINOPHEN 1000 MG/100 ML BAG IVPB PRN (04:47)
[2022-09-12] MEDS: HEPARIN NA (PORCINE) 5,000 UNITS/ML 1ML VIAL SQ SCH ×3 (05:05→21:06)
[2022-09-12] MEDS ORDERED: LACTATED RINGERS SOLUTION 1000 ML INFUS.BAG IV ONE (05:07)
[2022-09-12] MEDS ORDERED: DEXTROSE 5%-LACTATED RINGERS 1,000 ML IV SCH (07:16)
[2022-09-12 09:13] LABS: RBC 3.03 M/mm3 (3.60-5.2)
[2022-09-12 09:14] LABS: HEMATOCRIT 27.2 % (32.4-45.2); HEMOGLOBIN 8.9 GM/dL (10.7-15.3); MCH 29.3 pg (25.7-33.7); MCHC 32.7 g/dl (32.0-36.0); MEAN CELL VOLUME 89.8 fl (80-96); MEAN PLT VOLUME 9.2 fl (7.5-11.1); PLATELET COUNT 117 10^3/uL (134-434); RDW 15.7 % (11.6-15.6)
[2022-09-12 09:25] LABS: WHITE BLOOD COUNT 0.4 K/mm3 (4.0-10.0)
[2022-09-12 10:09] LABS: ANISOCYTOSIS 2+; MACROCYTOSIS 0; OVALOCYTE 1+
[2022-09-12 10:21] LABS: ALBUMIN 1.8 g/dl (3.4-5.0); BILIRUBIN,TOTAL 0.4 mg/dL (0.2-1); BLOOD UREA NITROGEN 17.1 mg/dL (7-18); CALCIUM 7.6 mg/dL (8.5-10.1); MAGNESIUM 1.7 mg/dL (1.8-2.4); TOT PROT 4.4 g/dl (6.4-8.2)
[2022-09-12] MEDS: FOLIC ACID 1 MG TABLET (FP) PO SCH (10:37)
[2022-09-12] MEDS: MIDODRINE HCL 5 MG TABLET PO SCH ×4 (10:37→17:41)
[2022-09-12] MEDS: MULTIVITAMINS (DAILY MVI) TABLET (FP) PO SCH (10:37)
[2022-09-12] MEDS: ZINC SULFATE 220 MG CAPSULE (FP) PO SCH (10:37)
[2022-09-12] MEDS ORDERED: MAGNESIUM 2GM/50ML STERILE WATER IVPB IVPB ONE (10:49)
[2022-09-12] MEDS: POTASSIUM CHLORIDE TABS 20 MEQ TABLET.ER (FP) PO SCH ×2 (11:41→13:17)
[2022-09-12] MEDS: VANCOMYCIN 500 MG in DEXTROSE 5%-WATER 100 ML IVPB SCH ×2 (11:58→23:36)
[2022-09-12] MEDS: TBO-FILGRASTIM 300 MCG/0.5 ML DISP.SYRINGE SQ SCH (12:42)
[2022-09-12] MEDS: PROCHLORPERAZINE INJECTION 10 MG/2 ML VIAL IVPB SCH ×3 (12:56→21:06)
[2022-09-12] MEDS: KCL 10 MEQ IVPB 10 MEQ/100 ML INFUS.BAG IVPB SCH ×3 (13:00→15:34)
[2022-09-12] MEDS: FLUCONAZOLE 100 MG/NS 50 ML IVPB SCH (13:38)
[2022-09-12] MEDS: ACETAMINOPHEN 500 MG TABLET (FP) PO PRN (16:49)
[2022-09-12] MEDS: AMINO ACIDS 4.25%/D5W 1,000 ML IV SCH (16:49)
[2022-09-12] MEDS: AMINO ACIDS/PROTEIN HYDROLYS 30 ML LIQUID.PKT PO SCH (16:50)
[2022-09-12] MEDS: ATORVASTATIN CA 20 MG TABLET (FP) PO SCH (21:06)
[2022-09-13] MEDS: ZOLPIDEM TARTRATE 5 MG TABLET PO PRN (01:40)
[2022-09-13] MEDS: AMINO ACIDS 4.25%/D5W 1,000 ML IV SCH ×3 (02:06→12:22)
[2022-09-13] MEDS: PIPERACILLIN/TAZOB 2.25 GM 2.25 GM in DEXTROSE 5%-WATER - 50 ML IVPB SCH ×4 (02:27→21:48)
[2022-09-13] MEDS: NYSTATIN 500,000 UNITS/5 ML SUSPENSION PO SCH ×3 (06:53→17:05)
[2022-09-13] MEDS: HEPARIN NA (PORCINE) 5,000 UNITS/ML 1ML VIAL SQ SCH ×3 (06:53→21:48)
[2022-09-13] MEDS: ACETAMINOPHEN 500 MG TABLET (FP) PO PRN ×2 (06:53→17:34)
[2022-09-13] MEDS: PROCHLORPERAZINE INJECTION 10 MG/2 ML VIAL IVPB SCH ×4 (06:54→21:48)
[2022-09-13] MEDS: [UNRECOGNIZED DRUG - OTHER] PO SCH ×2 (07:40→07:41)
[2022-09-13] MEDS: AMINO ACIDS/PROTEIN HYDROLYS 30 ML LIQUID.PKT PO SCH ×3 (08:45→17:05)
[2022-09-13 09:59] LABS: HEMATOCRIT 30.8 % (32.4-45.2); MCH 29.7 pg (25.7-33.7); MCHC 32.6 g/dl (32.0-36.0); MEAN CELL VOLUME 91.2 fl (80-96); MEAN PLT VOLUME 9.9 fl (7.5-11.1); PLATELET COUNT 153 10^3/uL (134-434); RBC 3.38 M/mm3 (3.60-5.2)
[2022-09-13] MEDS: FLUCONAZOLE 100 MG/NS 50 ML IVPB SCH (10:04)
[2022-09-13] MEDS: FOLIC ACID 1 MG TABLET (FP) PO SCH (10:07)
[2022-09-13] MEDS: MIDODRINE HCL 5 MG TABLET PO SCH ×3 (10:07→17:05)
[2022-09-13] MEDS: ZINC SULFATE 220 MG CAPSULE (FP) PO SCH (10:07)
[2022-09-13] MEDS: PANTOPRAZOLE 40 MG TABLET PO SCH (10:08)
[2022-09-13] MEDS: MULTIVITAMINS (DAILY MVI) TABLET (FP) PO SCH (10:08)
[2022-09-13 10:21] LABS: WHITE BLOOD COUNT 1.2 K/mm3 (4.0-10.0)
[2022-09-13 10:27] LABS: BLOOD UREA NITROGEN 16.2 mg/dL (7-18)
[2022-09-13 10:28] LABS: CALCIUM 7.8 mg/dL (8.5-10.1)
[2022-09-13 10:31] LABS: CREATININE 0.8 mg/dL (0.55-1.3); MAGNESIUM 1.7 mg/dL (1.8-2.4)
[2022-09-13 10:32] LABS: BILIRUBIN,TOTAL 0.6 mg/dL (0.2-1)
[2022-09-13 11:05] LABS: ANISOCYTOSIS 0; MACROCYTOSIS 0
[2022-09-13] MEDS: TBO-FILGRASTIM 300 MCG/0.5 ML DISP.SYRINGE SQ SCH (11:12)
[2022-09-13] MEDS: VANCOMYCIN 500 MG in DEXTROSE 5%-WATER 100 ML IVPB SCH ×2 (11:12→23:45)
[2022-09-13] MEDS ORDERED: MAGNESIUM 2GM/50ML STERILE WATER IVPB IVPB ONE (11:30)
[2022-09-13 12:02] LABS: PHOSPHOROUS 1.3 mg/dL (2.5-4.9)
[2022-09-13] MEDS: KCL 10 MEQ IVPB 10 MEQ/100 ML INFUS.BAG IVPB SCH ×2 (12:18→14:12)
[2022-09-13 12:54] LABS: HIV INTERPRETATION NEGATIVE (NEGATIVE)
[2022-09-13] MEDS: POTASSIUM CHLORIDE ORAL LIQUID 20 MEQ/15 ML PO SCH ×2 (14:09→21:48)
[2022-09-13] MEDS: NAPH,MB-DB/K PH,MBDB POWDER PACKET PO SCH ×3 (14:09→22:58)
[2022-09-13] MEDS: POTASSIUM CHLORIDE 30 MEQ in AMINO ACIDS 4.25%/D5W 1,000 ML IV SCH (15:59)
[2022-09-13] MEDS: LIDOCAINE 5% TOPICAL PATCH TP SCH (17:33)
[2022-09-13] MEDS: oxyCODONE HCL 5 MG TABLET PO PRN (17:34)
[2022-09-13] MEDS: ATORVASTATIN CA 20 MG TABLET (FP) PO SCH (21:48)
[2022-09-13] MEDS: LIDOCAINE PATCH REMOVAL MC SCH (22:05)
[2022-09-14] MEDS: NYSTATIN 500,000 UNITS/5 ML SUSPENSION PO SCH ×5 (01:01→23:45)
[2022-09-14] MEDS: ZOLPIDEM TARTRATE 5 MG TABLET PO PRN (01:01)
[2022-09-14] MEDS: POTASSIUM CHLORIDE 30 MEQ in AMINO ACIDS 4.25%/D5W 1,000 ML IV SCH (03:21)
[2022-09-14] MEDS: PIPERACILLIN/TAZOB 2.25 GM 2.25 GM in DEXTROSE 5%-WATER - 50 ML IVPB SCH ×4 (03:21→21:28)
[2022-09-14] MEDS: HEPARIN NA (PORCINE) 5,000 UNITS/ML 1ML VIAL SQ SCH ×3 (05:20→21:28)
[2022-09-14] MEDS: NAPH,MB-DB/K PH,MBDB POWDER PACKET PO SCH ×2 (05:20→06:54)
[2022-09-14] MEDS: ACETAMINOPHEN 500 MG TABLET (FP) PO PRN (05:21)
[2022-09-14] MEDS: PROCHLORPERAZINE INJECTION 10 MG/2 ML VIAL IVPB SCH ×4 (06:45→21:29)
[2022-09-14] MEDS: AMINO ACIDS/PROTEIN HYDROLYS 30 ML LIQUID.PKT PO SCH ×4 (08:02→17:39)
[2022-09-14] MEDS: ZINC SULFATE 220 MG CAPSULE (FP) PO SCH (09:56)
[2022-09-14] MEDS: FOLIC ACID 1 MG TABLET (FP) PO SCH (09:56)
[2022-09-14] MEDS: LIDOCAINE 5% TOPICAL PATCH TP SCH (09:56)
[2022-09-14] MEDS: PANTOPRAZOLE 40 MG TABLET PO SCH (09:57)
[2022-09-14] MEDS: MIDODRINE HCL 5 MG TABLET PO SCH ×4 (09:57→17:40)
[2022-09-14] MEDS: MULTIVITAMINS (DAILY MVI) TABLET (FP) PO SCH (09:57)
[2022-09-14 10:25] LABS: HEMATOCRIT 27.2 % (32.4-45.2); HEMOGLOBIN 8.9 GM/dL (10.7-15.3); MCH 29.7 pg (25.7-33.7); MCHC 32.8 g/dl (32.0-36.0); MEAN CELL VOLUME 90.6 fl (80-96); PLATELET COUNT 102 10^3/uL (134-434); RDW 16.1 % (11.6-15.6); WHITE BLOOD COUNT 4.9 K/mm3 (4.0-10.0)
[2022-09-14] MEDS: VANCOMYCIN 500 MG in DEXTROSE 5%-WATER 100 ML IVPB SCH (11:14)
[2022-09-14 11:31] LABS: ANISOCYTOSIS 0; HELMET CELLS 0; HOWELL-JOLLY BODIES 0; MACROCYTOSIS 0; OVALOCYTE 0; ROULEAU 0; SICKELED CELLS 0; TARGET CELLS 0; TEAR DROP CELLS 0; TOXIC GRANULATION 0
[2022-09-14] MEDS: TBO-FILGRASTIM 300 MCG/0.5 ML DISP.SYRINGE SQ SCH (11:37)
[2022-09-14 13:42] LABS: CHLORIDE 117 mmol/L (98-107); SODIUM 141 mmol/L (136-145)
[2022-09-14 13:44] LABS: CALCIUM 7.7 mg/dL (8.5-10.1)
[2022-09-14 13:45] LABS: ALBUMIN 1.8 g/dl (3.4-5.0); ANION GAP 7 MMOL/L (8-16); BLOOD UREA NITROGEN 17.3 mg/dL (7-18); CO2 17 mmol/L (21-32); GLUCOSE,RANDOM 105 mg/dL (74-106); MAGNESIUM 1.7 mg/dL (1.8-2.4)
[2022-09-14 13:48] LABS: CREATININE 0.8 mg/dL (0.55-1.3); SGOT/AST 24 U/L (15-37); SGPT/ALT 13 U/L (13-61)
[2022-09-14 13:49] LABS: BILIRUBIN,TOTAL 0.4 mg/dL (0.2-1); TOT PROT 4.3 g/dl (6.4-8.2)
[2022-09-14 14:21] LABS: ALK PHOS 141 U/L (45-117); PHOSPHOROUS 0.5 mg/dL (2.5-4.9)
[2022-09-14] MEDS: FLUCONAZOLE 100 MG/NS 50 ML IVPB SCH (14:28)
[2022-09-14] MEDS ORDERED: MAGNESIUM SULFATE IN WATER 2 GM/50 ML IVPB IVPB ONE (15:15)
[2022-09-14] MEDS ORDERED: POTASSIUM PHOSPHATE 30 MM in SODIUM CHLORIDE 500 ML IVPB ONE (16:00)
[2022-09-14 16:07] LABS: CMV IgM < 30.0 AU/mL (0.0-29.9)
[2022-09-14 17:07] LABS: PARV B19 IGG 3.3 index (0.0-0.8); PARV B19 IGM 0.1 index (0.0-0.8)
[2022-09-14] MEDS: ATORVASTATIN CA 20 MG TABLET (FP) PO SCH (21:29)
[2022-09-14] MEDS: LIDOCAINE PATCH REMOVAL MC SCH (21:30)
[2022-09-15] MEDS: PIPERACILLIN/TAZOB 2.25 GM 2.25 GM in DEXTROSE 5%-WATER - 50 ML IVPB SCH ×4 (02:23→20:56)
[2022-09-15] MEDS: ZOLPIDEM TARTRATE 5 MG TABLET PO PRN ×2 (02:28→23:17)
[2022-09-15] MEDS: PROCHLORPERAZINE INJECTION 10 MG/2 ML VIAL IVPB SCH ×4 (07:03→21:31)
[2022-09-15] MEDS: HEPARIN NA (PORCINE) 5,000 UNITS/ML 1ML VIAL SQ SCH ×3 (07:03→21:31)
[2022-09-15] MEDS: NYSTATIN 500,000 UNITS/5 ML SUSPENSION PO SCH ×4 (07:04→23:25)
[2022-09-15] MEDS: AMINO ACIDS/PROTEIN HYDROLYS 30 ML LIQUID.PKT PO SCH ×4 (08:44→17:10)
[2022-09-15] MEDS: predniSONE 20 MG TABLET (UD) PO SCH (08:44)
[2022-09-15 09:03] LABS: HEMATOCRIT 27.5 % (32.4-45.2); HEMOGLOBIN 9.1 GM/dL (10.7-15.3); MCH 30.1 pg (25.7-33.7); MCHC 33.2 g/dl (32.0-36.0); MEAN CELL VOLUME 90.8 fl (80-96); MEAN PLT VOLUME 10.1 fl (7.5-11.1); PLATELET COUNT 122 10^3/uL (134-434); RBC 3.03 M/mm3 (3.60-5.2); RDW 16.8 % (11.6-15.6); WHITE BLOOD COUNT 8.9 K/mm3 (4.0-10.0)
[2022-09-15] MEDS: FOLIC ACID 1 MG TABLET (FP) PO SCH (09:27)
[2022-09-15] MEDS: MIDODRINE HCL 5 MG TABLET PO SCH ×3 (09:27→17:09)
[2022-09-15] MEDS: MULTIVITAMINS (DAILY MVI) TABLET (FP) PO SCH (09:27)
[2022-09-15] MEDS: ZINC SULFATE 220 MG CAPSULE (FP) PO SCH (09:28)
[2022-09-15] MEDS: PANTOPRAZOLE 40 MG TABLET PO SCH (09:28)
[2022-09-15 09:33] LABS: BLOOD UREA NITROGEN 13.2 mg/dL (7-18); CALCIUM 7.4 mg/dL (8.5-10.1)
[2022-09-15 09:34] LABS: ALBUMIN 1.8 g/dl (3.4-5.0)
[2022-09-15 09:36] LABS: PHOSPHOROUS 2.2 mg/dL (2.5-4.9)
[2022-09-15 09:38] LABS: CREATININE 0.7 mg/dL (0.55-1.3); TOT PROT 4.5 g/dl (6.4-8.2)
[2022-09-15 09:40] LABS: BILIRUBIN,TOTAL 0.4 mg/dL (0.2-1)
[2022-09-15] MEDS ORDERED: SODIUM PHOSPHATE - 30 MM in DEXTROSE 5%-WATER - 500 ML IVPB ONE (09:53)
[2022-09-15 09:57] LABS: ANISOCYTOSIS 0; HELMET CELLS 0; HOWELL-JOLLY BODIES 0; MACROCYTOSIS 0; OVALOCYTE 0; ROULEAU 0; SICKELED CELLS 0; TARGET CELLS 0; TEAR DROP CELLS 0; TOXIC GRANULATION 0
[2022-09-15] MEDS: LIDOCAINE 5% TOPICAL PATCH TP SCH (10:27)
[2022-09-15 11:15] LABS: ERYTHROCYTE SEDIMENTATION RATE 110 mm/hr (0-20)
[2022-09-15] MEDS: FLUCONAZOLE 100 MG/NS 50 ML IVPB SCH (11:33)
[2022-09-15 12:33] LABS: URINE APPEARANCE CLEAR; URINE BILIRUBIN NEGATIVE (NEGATIVE); URINE COLOR YELLOW; URINE GLUCOSE (UA) NEGATIVE (NEGATIVE); URINE KETONE NEGATIVE (NEGATIVE); URINE LEUK ESTERASE NEGATIVE (NEGATIVE); URINE NITRITE NEGATIVE (NEGATIVE); URINE PROTEIN NEGATIVE (NEGATIVE); URINE UROBILINOGEN 0.2 mg/dL (0.2-1.0)
[2022-09-15] MEDS: ATORVASTATIN CA 20 MG TABLET (FP) PO SCH (21:32)
[2022-09-15] MEDS: oxyCODONE HCL 5 MG TABLET PO PRN (23:16)
[2022-09-15] MEDS: LIDOCAINE PATCH REMOVAL MC SCH (23:20)
[2022-09-16] MEDS: PIPERACILLIN/TAZOB 2.25 GM 2.25 GM in DEXTROSE 5%-WATER - 50 ML IVPB SCH ×4 (02:03→22:14)
[2022-09-16] MEDS: PROCHLORPERAZINE INJECTION 10 MG/2 ML VIAL IVPB SCH ×4 (06:00→22:15)
[2022-09-16] MEDS: NYSTATIN 500,000 UNITS/5 ML SUSPENSION PO SCH ×4 (06:00→23:15)
[2022-09-16] MEDS: HEPARIN NA (PORCINE) 5,000 UNITS/ML 1ML VIAL SQ SCH ×3 (06:00→22:14)
[2022-09-16 08:56] LABS: HEMATOCRIT 30.8 % (32.4-45.2); HEMOGLOBIN 10.1 GM/dL (10.7-15.3); MCH 29.6 pg (25.7-33.7); MCHC 32.7 g/dl (32.0-36.0); MEAN CELL VOLUME 90.3 fl (80-96); MEAN PLT VOLUME 10.5 fl (7.5-11.1); PLATELET COUNT 150 10^3/uL (134-434); RBC 3.41 M/mm3 (3.60-5.2); RDW 16.7 % (11.6-15.6); WHITE BLOOD COUNT 8.7 K/mm3 (4.0-10.0)
[2022-09-16] MEDS: AMINO ACIDS/PROTEIN HYDROLYS 30 ML LIQUID.PKT PO SCH ×3 (09:34→17:04)
[2022-09-16 09:37] LABS: BLOOD UREA NITROGEN 13.3 mg/dL (7-18)
[2022-09-16 09:38] LABS: MAGNESIUM 1.9 mg/dL (1.8-2.4)
[2022-09-16 09:39] LABS: CALCIUM 8.2 mg/dL (8.5-10.1)
[2022-09-16 09:40] LABS: CREATININE 0.7 mg/dL (0.55-1.3); PHOSPHOROUS 4.4 mg/dL (2.5-4.9)
[2022-09-16 09:41] LABS: ANISOCYTOSIS 0; HELMET CELLS 0; HOWELL-JOLLY BODIES 0; MACROCYTOSIS 0; OVALOCYTE 0; ROULEAU 0; SICKELED CELLS 0; TARGET CELLS 0; TEAR DROP CELLS 0; TOXIC GRANULATION 0
[2022-09-16 09:42] LABS: BILIRUBIN,TOTAL 0.3 mg/dL (0.2-1)
[2022-09-16] MEDS: MULTIVITAMINS (DAILY MVI) TABLET (FP) PO SCH (10:06)
[2022-09-16] MEDS: ZINC SULFATE 220 MG CAPSULE (FP) PO SCH (10:06)
[2022-09-16] MEDS: PANTOPRAZOLE 40 MG TABLET PO SCH (10:06)
[2022-09-16] MEDS: MIDODRINE HCL 5 MG TABLET PO SCH ×3 (10:06→17:45)
[2022-09-16] MEDS: FLUCONAZOLE 100 MG TABLET (UD) PO SCH (10:06)
[2022-09-16] MEDS: predniSONE 20 MG TABLET (UD) PO SCH (10:06)
[2022-09-16] MEDS: FOLIC ACID 1 MG TABLET (FP) PO SCH (10:06)
[2022-09-16] MEDS: LIDOCAINE 5% TOPICAL PATCH TP SCH (10:07)
[2022-09-16] MEDS: LIDOCAINE PATCH REMOVAL MC SCH (22:15)
[2022-09-16] MEDS: ATORVASTATIN CA 20 MG TABLET (FP) PO SCH (22:15)
[2022-09-17] MEDS: ZOLPIDEM TARTRATE 5 MG TABLET PO PRN ×2 (00:25→22:51)
[2022-09-17] MEDS: PIPERACILLIN/TAZOB 2.25 GM 2.25 GM in DEXTROSE 5%-WATER - 50 ML IVPB SCH ×2 (02:16→09:26)
[2022-09-17] MEDS: NYSTATIN 500,000 UNITS/5 ML SUSPENSION PO SCH ×4 (06:40→23:13)
[2022-09-17] MEDS: HEPARIN NA (PORCINE) 5,000 UNITS/ML 1ML VIAL SQ SCH ×3 (06:40→22:33)
[2022-09-17] MEDS: PROCHLORPERAZINE INJECTION 10 MG/2 ML VIAL IVPB SCH ×4 (06:40→22:33)
[2022-09-17] MEDS: AMINO ACIDS/PROTEIN HYDROLYS 30 ML LIQUID.PKT PO SCH ×3 (08:15→17:10)
[2022-09-17] MEDS ORDERED: MELATONIN 5 MG TABLETS PO PRN (09:25)
[2022-09-17 09:36] LABS: MCH 29.9 pg (25.7-33.7); MCHC 33.3 g/dl (32.0-36.0); MEAN CELL VOLUME 89.7 fl (80-96); MEAN PLT VOLUME 10.8 fl (7.5-11.1); PLATELET COUNT 169 10^3/uL (134-434); RBC 3.35 M/mm3 (3.60-5.2); RDW 17.5 % (11.6-15.6); WHITE BLOOD COUNT 7.9 K/mm3 (4.0-10.0)
[2022-09-17] MEDS: predniSONE 20 MG TABLET (UD) PO SCH (09:53)
[2022-09-17] MEDS: PANTOPRAZOLE 40 MG TABLET PO SCH (09:53)
[2022-09-17] MEDS: MIDODRINE HCL 5 MG TABLET PO SCH ×3 (09:53→17:41)
[2022-09-17] MEDS: FOLIC ACID 1 MG TABLET (FP) PO SCH (09:53)
[2022-09-17] MEDS: ZINC SULFATE 220 MG CAPSULE (FP) PO SCH (09:53)
[2022-09-17] MEDS: MULTIVITAMINS (DAILY MVI) TABLET (FP) PO SCH (09:53)
[2022-09-17] MEDS: FLUCONAZOLE 100 MG TABLET (UD) PO SCH (09:53)
[2022-09-17] MEDS: LIDOCAINE 5% TOPICAL PATCH TP SCH ×2 (09:54→10:04)
[2022-09-17 09:56] LABS: ALBUMIN 1.9 g/dl (3.4-5.0); BLOOD UREA NITROGEN 16.4 mg/dL (7-18); CALCIUM 8.3 mg/dL (8.5-10.1); MAGNESIUM 1.9 mg/dL (1.8-2.4)
[2022-09-17 10:00] LABS: CREATININE 0.7 mg/dL (0.55-1.3); PHOSPHOROUS 3.3 mg/dL (2.5-4.9)
[2022-09-17 10:01] LABS: BILIRUBIN,TOTAL 0.4 mg/dL (0.2-1); TOT PROT 4.8 g/dl (6.4-8.2)
[2022-09-17 11:46] LABS: ANISOCYTOSIS 0; MACROCYTOSIS 0
[2022-09-17] MEDS ORDERED: SODIUM BICARBONATE 650 MG TABLET PO ONE (16:26)
[2022-09-17] MEDS: ATORVASTATIN CA 20 MG TABLET (FP) PO SCH (22:33)
[2022-09-17] MEDS: LIDOCAINE PATCH REMOVAL MC SCH (22:35)
[2022-09-18] MEDS: NYSTATIN 500,000 UNITS/5 ML SUSPENSION PO SCH ×2 (06:20→11:59)
[2022-09-18] MEDS: HEPARIN NA (PORCINE) 5,000 UNITS/ML 1ML VIAL SQ SCH ×2 (06:20→15:10)
[2022-09-18] MEDS: PROCHLORPERAZINE INJECTION 10 MG/2 ML VIAL IVPB SCH ×3 (06:21→16:54)
[2022-09-18] MEDS: predniSONE 20 MG TABLET (UD) PO SCH (09:05)
[2022-09-18] MEDS: AMINO ACIDS/PROTEIN HYDROLYS 30 ML LIQUID.PKT PO SCH ×2 (09:05→11:59)
[2022-09-18] MEDS: FOLIC ACID 1 MG TABLET (FP) PO SCH (09:05)
[2022-09-18] MEDS: MIDODRINE HCL 5 MG TABLET PO SCH ×2 (09:05→15:11)
[2022-09-18] MEDS: ZINC SULFATE 220 MG CAPSULE (FP) PO SCH (09:05)
[2022-09-18] MEDS: PANTOPRAZOLE 40 MG TABLET PO SCH (09:05)
[2022-09-18] MEDS: LIDOCAINE 5% TOPICAL PATCH TP SCH (09:06)
[2022-09-18] MEDS: MULTIVITAMINS (DAILY MVI) TABLET (FP) PO SCH (09:06)
[2022-09-18] MEDS: FLUCONAZOLE 100 MG TABLET (UD) PO SCH (09:06)
[2022-09-18 10:35] LABS: HEMATOCRIT 34.1 % (32.4-45.2); HEMOGLOBIN 11.1 GM/dL (10.7-15.3); MCH 29.5 pg (25.7-33.7); MCHC 32.5 g/dl (32.0-36.0); MEAN CELL VOLUME 90.7 fl (80-96); MEAN PLT VOLUME 10.8 fl (7.5-11.1); PLATELET COUNT 206 10^3/uL (134-434); RBC 3.76 M/mm3 (3.60-5.2); RDW 17.6 % (11.6-15.6); WHITE BLOOD COUNT 7.8 K/mm3 (4.0-10.0)
[2022-09-18 11:12] LABS: ANISOCYTOSIS 1+; MACROCYTOSIS 0; PLATELET ESTIMATE DECREASED
[2022-09-18 11:35] LABS: CALCIUM 8.3 mg/dL (8.5-10.1)
[2022-09-18 11:36] LABS: ALBUMIN 2.1 g/dl (3.4-5.0); BLOOD UREA NITROGEN 17.4 mg/dL (7-18); MAGNESIUM 1.8 mg/dL (1.8-2.4)
[2022-09-18 11:39] LABS: CREATININE 0.8 mg/dL (0.55-1.3); PHOSPHOROUS 2.9 mg/dL (2.5-4.9)
[2022-09-18 11:41] LABS: BILIRUBIN,TOTAL 0.2 mg/dL (0.2-1)
[2022-09-18 13:31] VITALS: BP 97/64; PULSE 76; RESP 18; TEMP 97.4
== END 2022-09-18 16:45 | disposition home or self-care (01) | DRG 545 ==
LOC: JER 18:20 → JERBED 21:28 → J7W 09-11 06:43
PROVIDERS: ADMIT Internal Medicine
DX: M32.9 Systemic lupus erythematosus, unspecified (principal); J18.9 Pneumonia, unspecified organism; D61.818 Other pancytopenia; B37.81 Candidal esophagitis; E46 Unspecified protein-calorie malnutrition; Z68.1 Body mass index [BMI] 19.9 or less, adult; E87.20 Acidosis, unspecified; D70.9 Neutropenia, unspecified; I73.00 Raynaud's syndrome without gangrene; M35.00 Sjogren syndrome, unspecified; R13.10 Dysphagia, unspecified; I10 Essential (primary) hypertension; E78.5 Hyperlipidemia, unspecified; E87.6 Hypokalemia; E83.42 Hypomagnesemia; E83.39 Other disorders of phosphorus metabolism; R50.9 Fever, unspecified; K21.9 Gastro-esophageal reflux disease without esophagitis; D64.9 Anemia, unspecified; R19.7 Diarrhea, unspecified; R74.8 Abnormal levels of other serum enzymes
CPT/HCPCS: 0241U-QW; 36415; 71045-TC-FY; 71250-TC; 74176-TC; 76775-TC; 80053; 80061; 81003; 82272; 82436; 82533; 82550; 82570; 82962; 83605; 83690; 83735; 83993; 84100; 84133; 84156; 84300; 84439; 84443; 84703; 85025; 85045; 85651; 86140; 86160; 86225; 86644; 86645; 86664; 86747; 86850; 86900; 86901; 87040; 87070; 87077; 87086; 87106; 87186; 87205; 87324; 87389; 87449; 87497; 87799; 87899; 93005; 93010; 97116-GP; 99285-25; G0480; J1447; J1644

== ENCOUNTER 2023-03-01 16:34 | Emergency (ER) | payer OTHER ==
[2023-03-01 16:54] VITALS: RESP 18; TEMP 98.2; BMI 22.1
[2023-03-01 19:49] LABS: INR 0.92 (0.83-1.09); PROTHROMBIN TIME (PATIENT) 10.7 SEC (9.7-13.0)
[2023-03-01 19:59] LABS: POTASSIUM 5.2 mmol/L (3.5-5.1)
[2023-03-01 20:02] LABS: CALCIUM 8.8 mg/dL (8.5-10.1)
[2023-03-01 20:03] LABS: ALBUMIN 3.1 g/dl (3.4-5.0); BLOOD UREA NITROGEN 11.8 mg/dL (7-18)
[2023-03-01 20:06] LABS: CREATININE 0.7 mg/dL (0.55-1.3)
[2023-03-01 20:07] LABS: BILIRUBIN,TOTAL 0.5 mg/dL (0.2-1); TOT PROT 6.7 g/dl (6.4-8.2)
[2023-03-01] MEDS ORDERED: ACETAMINOPHEN 325 MG TABLET (FP) PO ONE (20:21)
[2023-03-01 21:16] LABS: BASO % 0.5 % (0-2.0); EOS % 3.2 % (0-4.5); HEMATOCRIT 32.3 % (32.4-45.2); HEMOGLOBIN 10.4 GM/dL (10.7-15.3); LYMPH % 13.7 % (8-40); MCH 28.1 pg (25.7-33.7); MCHC 32.3 g/dl (32.0-36.0); MEAN CELL VOLUME 86.8 fl (80-96); MEAN PLT VOLUME 8.6 fl (7.5-11.1); MONO % 5.3 % (3.8-10.2); NEUT % 77.3 % (42.8-82.8); PLATELET COUNT 204 10^3/uL (134-434); RBC 3.72 M/mm3 (3.60-5.2); RDW 18.7 % (11.6-15.6); WHITE BLOOD COUNT 2.4 K/mm3 (4.0-10.0)
[2023-03-01] MEDS ORDERED: ACETAMINOPHEN 325 MG TABLET (FP) ONE (21:33)
[2023-03-01 21:42] VITALS: BP 99/63; PULSE 81
== END 2023-03-02 00:10 | disposition home or self-care (01) ==
LOC: JER 16:34
DX: R07.1 Chest pain on breathing (principal); M25.511 Pain in right shoulder; R68.83 Chills (without fever); R09.81 Nasal congestion; R05.9 Cough, unspecified; R11.0 Nausea; Z20.822 Contact with and (suspected) exposure to COVID-19
CPT/HCPCS: 0241U-QW; 36415; 71046-TC-FY; 71275-TC; 80053; 83735; 84484; 84703; 85025; 85379; 85610; 93005; 93010; 99285-25; Q9967

== ENCOUNTER 2023-04-09 15:04 | Emergency (ER) | payer OTHER ==
[2023-04-09 15:08] VITALS: BP 97/59; PULSE 66; RESP 18; TEMP 99.3; BMI 21.2
[2023-04-09 17:28] LABS: THROAT:GRP A STREP NOT DETECTED (NOTDETECTED)
[2023-04-09 17:30] LABS: URINE APPEARANCE CLEAR; URINE BILIRUBIN NEGATIVE (NEGATIVE); URINE COLOR YELLOW; URINE GLUCOSE (UA) NEGATIVE (NEGATIVE); URINE KETONE NEGATIVE (NEGATIVE); URINE LEUK ESTERASE NEGATIVE (NEGATIVE); URINE NITRITE NEGATIVE (NEGATIVE); URINE PROTEIN NEGATIVE (NEGATIVE); URINE UROBILINOGEN 0.2 mg/dL (0.2-1.0)
== END 2023-04-09 17:51 | disposition home or self-care (01) ==
LOC: JERFT 15:04
DX: J02.9 Acute pharyngitis, unspecified (principal); Z20.822 Contact with and (suspected) exposure to COVID-19
CPT/HCPCS: 0241U-QW; 81003; 87086; 87651; 99283-25

== ENCOUNTER 2023-04-16 16:44 | Inpatient (IN) | payer OTHER ==
[2023-04-16 16:53] VITALS: BMI 19.5
[2023-04-16] MEDS ORDERED: ACETAMINOPHEN 1000 MG/100 ML BAG IVPB ONE (17:37)
[2023-04-16] MEDS ORDERED: FLUCONAZOLE 400 MG/NS 200 ML IVPB ONE (17:37)
[2023-04-16] MEDS ORDERED: SODIUM CHLORIDE 0.9% 500 ML INFUS.BAG IV ONE (17:37)
[2023-04-16] MEDS ORDERED: ACETAMINOPHEN INJECTION 100 ML IVPB ONE (18:10)
[2023-04-16] MEDS ORDERED: LIDOCAINE VISCOUS 2% ORAL/TOP 15 ML UNIT-DOSE CUP MM ONE (18:41)
[2023-04-16] MEDS ORDERED: MAG HYDROX/AL HYDROX/SIMETH 30 ML UNIT-DOSE CUP PO ONE (18:42)
[2023-04-16 18:54] LABS: BASO % 0.1 % (0-2.0); EOS % 0.6 % (0-4.5); HEMATOCRIT 28.7 % (32.4-45.2); HEMOGLOBIN 9.7 GM/dL (10.7-15.3); LYMPH % 4.2 % (8-40); MCH 31.3 pg (25.7-33.7); MCHC 33.9 g/dl (32.0-36.0); MEAN CELL VOLUME 92.3 fl (80-96); MEAN PLT VOLUME 8.3 fl (7.5-11.1); MONO % 5.4 % (3.8-10.2); NEUT % 89.7 % (42.8-82.8); PLATELET COUNT 282 10^3/uL (134-434); RBC 3.11 M/mm3 (3.60-5.2); RDW 27.2 % (11.6-15.6); WHITE BLOOD COUNT 3.2 K/mm3 (4.0-10.0)
[2023-04-16 18:56] LABS: EPI CELLS 16 /uL (0-25.1); HYALINE CASTS 0 /uL (0-3.1); PH,URINE 6.5 (5.0-8.0); URINE APPEARANCE CLEAR; URINE BACTERIA 11 /uL (0-1359); URINE BILIRUBIN NEGATIVE (NEGATIVE); URINE COLOR YELLOW; URINE GLUCOSE (UA) NEGATIVE (NEGATIVE); URINE KETONE NEGATIVE (NEGATIVE); URINE LEUK ESTERASE 1+ (NEGATIVE); URINE NITRITE NEGATIVE (NEGATIVE); URINE PROTEIN NEGATIVE (NEGATIVE); URINE RBC 15 /uL (0-23.9); URINE UROBILINOGEN 0.2 mg/dL (0.2-1.0); URINE WBC 40 /uL (0-25.8)
[2023-04-16 19:46] LABS: ANISOCYTOSIS 3+; MACROCYTOSIS 0
[2023-04-16 20:06] LABS: POTASSIUM 4.2 mmol/L (3.5-5.1)
[2023-04-16 20:08] LABS: ALBUMIN 2.9 g/dl (3.4-5.0)
[2023-04-16 20:11] LABS: CREATININE 0.8 mg/dL (0.55-1.3)
[2023-04-16 20:13] LABS: BILIRUBIN,TOTAL 0.3 mg/dL (0.2-1); TOT PROT 6.7 g/dl (6.4-8.2)
[2023-04-16 20:19] LABS: CALCIUM 8.6 mg/dL (8.5-10.1)
[2023-04-16] MEDS ORDERED: DOXYCYCLINE INJECTION 100 MG in DEXTROSE 5%-WATER 100 ML IVPB ONE (20:45)
[2023-04-16] MEDS ORDERED: CEFTRIAXONE 1,000 MG in DEXTROSE 5%-WATER - 50 ML IVPB ONE (20:45)
[2023-04-16] MEDS ORDERED: CEFTRIAXONE 1 GM/50 ML BAG ONE (21:18)
[2023-04-16] MEDS ORDERED: DOXYCYCLINE HYCLATE 100 MG VIAL ONE (21:18)
[2023-04-17] MEDS: MAG HYDROX/ALH/SMC/DPHA/LIDO 240 ML MOUTHWASH MM SCH ×4 (00:44→17:14)
[2023-04-17] MEDS: SODIUM CHLORIDE 1,000 ML IV SCH ×2 (02:50→20:27)
[2023-04-17] MEDS: ACETAMINOPHEN 1000 MG/100 ML BAG IVPB PRN ×2 (05:46→16:26)
[2023-04-17] MEDS: predniSONE 5 MG TABLET (UD) PO SCH ×2 (09:32→21:28)
[2023-04-17] MEDS: MIDODRINE HCL 5 MG TABLET PO SCH ×3 (09:32→17:14)
[2023-04-17] MEDS: ENOXAPARIN NA (PORCINE) 40 MG/0.4 ML DISP.SYRIN SQ SCH (09:33)
[2023-04-17 09:44] LABS: HEMATOCRIT 23.6 % (32.4-45.2); HEMOGLOBIN 7.9 GM/dL (10.7-15.3); MCHC 33.4 g/dl (32.0-36.0); MEAN CELL VOLUME 92.7 fl (80-96); MEAN PLT VOLUME 8.9 fl (7.5-11.1); PLATELET COUNT 201 10^3/uL (134-434); RBC 2.54 M/mm3 (3.60-5.2); RDW 27.6 % (11.6-15.6)
[2023-04-17 09:49] LABS: POTASSIUM 3.7 mmol/L (3.5-5.1)
[2023-04-17 09:50] LABS: WHITE BLOOD COUNT 1.7 K/mm3 (4.0-10.0)
[2023-04-17 09:54] LABS: CALCIUM 7.7 mg/dL (8.5-10.1)
[2023-04-17 09:55] LABS: BLOOD UREA NITROGEN 9.8 mg/dL (7-18); MAGNESIUM 1.7 mg/dL (1.8-2.4)
[2023-04-17 09:57] LABS: CREATININE 0.7 mg/dL (0.55-1.3)
[2023-04-17 09:58] LABS: BILIRUBIN,TOTAL 0.2 mg/dL (0.2-1)
[2023-04-17 10:00] LABS: ALBUMIN 2.2 g/dl (3.4-5.0)
[2023-04-17] MEDS ORDERED: DOXYCYCLINE INJECTION 100 MG in DEXTROSE 5%-WATER 100 ML IVPB SCH (10:00)
[2023-04-17] MEDS ORDERED: [UNRECOGNIZED DRUG - OTHER] PO SCH (10:00)
[2023-04-17] MEDS ORDERED: CEFTRIAXONE 1 GM in DEXTROSE 5%-WATER - 50 ML IVPB SCH (10:00)
[2023-04-17] MEDS ORDERED: ALBUTEROL SO4 HFA INHALER IH PRN (10:00)
[2023-04-17] MEDS ORDERED: MAGNESIUM OXIDE 400 MG TABLET (FP) PO ONE (10:45)
[2023-04-17] MEDS: FLUCONAZOLE 100 MG TABLET (UD) PO SCH (12:01)
[2023-04-17] MEDS: PIPERACILLIN/TAZOB 3.375 GM 3.375 GM in DEXTROSE 5%-WATER - 50 ML IVPB SCH ×2 (12:01→17:14)
[2023-04-17] MEDS ORDERED: MAG HYDROX/ALH/SMC/DPHA/LIDO 240 ML MOUTHWASH MM SCH ×2 (19:18)
[2023-04-17] MEDS: ZOLPIDEM TARTRATE 5 MG TABLET PO PRN (21:31)
[2023-04-18] MEDS: MAG HYDROX/ALH/SMC/DPHA/LIDO 240 ML MOUTHWASH MM SCH ×4 (00:41→17:03)
[2023-04-18] MEDS: SODIUM CHLORIDE 1,000 ML IV SCH (01:56)
[2023-04-18] MEDS: PIPERACILLIN/TAZOB 3.375 GM 3.375 GM in DEXTROSE 5%-WATER - 50 ML IVPB SCH ×3 (01:56→17:03)
[2023-04-18] MEDS: predniSONE 5 MG TABLET (UD) PO SCH ×2 (09:34→21:28)
[2023-04-18] MEDS: MIDODRINE HCL 5 MG TABLET PO SCH ×3 (09:34→17:03)
[2023-04-18] MEDS: ENOXAPARIN NA (PORCINE) 40 MG/0.4 ML DISP.SYRIN SQ SCH (09:35)
[2023-04-18] MEDS: FLUCONAZOLE 100 MG TABLET (UD) PO SCH (09:37)
[2023-04-18 10:07] LABS: BASO % 0.2 % (0-2.0); EOS % 1.1 % (0-4.5); HEMATOCRIT 24.3 % (32.4-45.2); HEMOGLOBIN 8.1 GM/dL (10.7-15.3); LYMPH % 5.5 % (8-40); MCH 31.3 pg (25.7-33.7); MCHC 33.3 g/dl (32.0-36.0); MEAN CELL VOLUME 94.1 fl (80-96); MONO % 9.3 % (3.8-10.2); NEUT % 83.9 % (42.8-82.8); PLATELET COUNT 212 10^3/uL (134-434); RBC 2.58 M/mm3 (3.60-5.2); RDW 27.8 % (11.6-15.6)
[2023-04-18 10:12] LABS: POTASSIUM 3.7 mmol/L (3.5-5.1)
[2023-04-18 10:17] LABS: ALBUMIN 2.1 g/dl (3.4-5.0); CALCIUM 7.7 mg/dL (8.5-10.1)
[2023-04-18 10:18] LABS: BLOOD UREA NITROGEN 7.6 mg/dL (7-18)
[2023-04-18 10:20] LABS: CREATININE 0.7 mg/dL (0.55-1.3)
[2023-04-18 10:21] LABS: PHOSPHOROUS 2.6 mg/dL (2.5-4.9)
[2023-04-18 10:22] LABS: BILIRUBIN,TOTAL 0.2 mg/dL (0.2-1); TOT PROT 4.9 g/dl (6.4-8.2)
[2023-04-18] MEDS ORDERED: ACETAMINOPHEN 325 MG TABLET (FP) PO PRN (10:48)
[2023-04-18] MEDS: PANTOPRAZOLE 40 MG TABLET PO SCH (12:39)
[2023-04-19] MEDS: MAG HYDROX/ALH/SMC/DPHA/LIDO 240 ML MOUTHWASH MM SCH ×3 (00:59→11:59)
[2023-04-19] MEDS: ZOLPIDEM TARTRATE 5 MG TABLET PO PRN (00:59)
[2023-04-19] MEDS: NYSTATIN 500,000 UNITS/5 ML SUSPENSION PO SCH ×3 (01:00→11:59)
[2023-04-19] MEDS: PIPERACILLIN/TAZOB 3.375 GM 3.375 GM in DEXTROSE 5%-WATER - 50 ML IVPB SCH ×2 (02:32→09:05)
[2023-04-19 08:42] VITALS: BP 108/73; PULSE 74; RESP 16; TEMP 99.2
[2023-04-19] MEDS: PANTOPRAZOLE 40 MG TABLET PO SCH (09:05)
[2023-04-19] MEDS: predniSONE 5 MG TABLET (UD) PO SCH (09:05)
[2023-04-19] MEDS: MIDODRINE HCL 5 MG TABLET PO SCH ×2 (09:05→13:39)
[2023-04-19] MEDS: ENOXAPARIN NA (PORCINE) 40 MG/0.4 ML DISP.SYRIN SQ SCH (09:06)
[2023-04-19] MEDS: FLUCONAZOLE 100 MG TABLET (UD) PO SCH (09:21)
[2023-04-19 09:42] LABS: BASO % 0.2 % (0-2.0); EOS % 1.4 % (0-4.5); HEMATOCRIT 28.2 % (32.4-45.2); HEMOGLOBIN 9.1 GM/dL (10.7-15.3); LYMPH % 7.4 % (8-40); MCH 31.1 pg (25.7-33.7); MCHC 32.4 g/dl (32.0-36.0); MEAN CELL VOLUME 95.9 fl (80-96); MEAN PLT VOLUME 9.2 fl (7.5-11.1); MONO % 10.8 % (3.8-10.2); NEUT % 80.2 % (42.8-82.8); PLATELET COUNT 230 10^3/uL (134-434); RBC 2.94 M/mm3 (3.60-5.2); RDW 28.7 % (11.6-15.6); WHITE BLOOD COUNT 2.1 K/mm3 (4.0-10.0)
[2023-04-19 09:47] LABS: INR 1.03 (0.83-1.09); PROTHROMBIN TIME (PATIENT) 11.9 SEC (9.7-13.0)
[2023-04-19 10:04] LABS: POTASSIUM 3.7 mmol/L (3.5-5.1)
[2023-04-19 10:11] LABS: ALBUMIN 2.3 g/dl (3.4-5.0); BLOOD UREA NITROGEN 7.9 mg/dL (7-18); MAGNESIUM 1.8 mg/dL (1.8-2.4)
[2023-04-19 10:13] LABS: CREATININE 0.8 mg/dL (0.55-1.3)
[2023-04-19 10:15] LABS: BILIRUBIN,TOTAL 0.2 mg/dL (0.2-1); TOT PROT 5.2 g/dl (6.4-8.2)
== END 2023-04-19 15:25 | disposition home or self-care (01) | DRG 368 ==
LOC: JER 16:44 → JERBED 23:30 → J8W 04-17 03:34
PROVIDERS: ADMIT Internal Medicine; ATTEND Nurse Practitioner Family
DX: B37.81 Candidal esophagitis (principal); J18.9 Pneumonia, unspecified organism; J98.11 Atelectasis; E78.5 Hyperlipidemia, unspecified; Z86.16 Personal history of COVID-19; D64.9 Anemia, unspecified; M32.9 Systemic lupus erythematosus, unspecified; M35.00 Sjogren syndrome, unspecified; R13.10 Dysphagia, unspecified; I95.89 Other hypotension; D70.9 Neutropenia, unspecified
CPT/HCPCS: 0241U-QW; 36415; 71046-TC-FY; 80053; 81003; 82272; 82728; 83540; 83550; 83735; 84100; 85025; 85027; 85045; 85610; 87040; 87086; 87102; 87210; 93005; 93010; 94010; 99285-25

== ENCOUNTER 2023-10-30 12:58 | Emergency (ER) | payer OTHER ==
[2023-10-30 13:09] VITALS: BMI 28.3
[2023-10-30] MEDS ORDERED: TETRACAINE 0.5% OPHTH SOLN 2 ML BOTTLE ONE ×2 (13:37→14:19)
[2023-10-30] MEDS ORDERED: FLUORESCEIN NA 1 EA STRIP ONE ×2 (13:37→14:18)
[2023-10-30] MEDS ORDERED: ACETAMINOPHEN INJECTION 100 ML IVPB ONE (14:18)
[2023-10-30] MEDS: FLUORESCEIN NA 1 EA STRIP OD ONE (14:22)
[2023-10-30] MEDS: TETRACAINE 0.5% HCL 0.6ML DROPPER.BOTTLE OD ONE (14:22)
[2023-10-30] MEDS ORDERED: predniSONE 20 MG TABLET (UD) ONE (15:41)
[2023-10-30] MEDS ORDERED: valACYclovir HCL 500 MG TABLET (FP) ONE (15:41)
[2023-10-30] MEDS: SODIUM CHLORIDE 1,000 ML IV STA (15:43)
[2023-10-30] MEDS: valACYclovir HCL 500 MG TABLET (FP) PO ONE (15:44)
[2023-10-30] MEDS: ACETAMINOPHEN 1000 MG/100 ML BAG IVPB ONE (15:44)
[2023-10-30] MEDS: predniSONE 20 MG TABLET (UD) PO ONE (15:44)
[2023-10-30] MEDS ORDERED: KETOROLAC TROMETHAMINE 30 MG/1 ML VIAL ONE (16:34)
[2023-10-30] MEDS ORDERED: ERYTHROMYCIN 0.5% OPHTHALMIC OINTMENT 3.5 GM TUBE ONE (16:34)
[2023-10-30] MEDS: KETOROLAC TROMETHAMINE 30 MG/1 ML VIAL IVPUSH ONE (16:38)
[2023-10-30] MEDS: ERYTHROMYCIN 0.5% OPHTHALMIC OINTMENT 3.5 GM TUBE OD ONE (16:38)
[2023-10-30 19:59] VITALS: BP 132/73; PULSE 84; RESP 16; TEMP 98
== END 2023-10-30 19:30 | disposition short-term general hospital (02) ==
LOC: JER 12:58
PROC: 3E033NZ Introduction of Analgesics, Hypnotics, Sedatives into Peripheral Vein, Percutaneous Approach (ICD-10-PCS; principal; 2023-10-30)
PROC: 3E0333Z Introduction of Anti-inflammatory into Peripheral Vein, Percutaneous Approach (ICD-10-PCS; 2023-10-30)
PROC: 3E0337Z Introduction of Electrolytic and Water Balance Substance into Peripheral Vein, Percutaneous Approach (ICD-10-PCS; 2023-10-30)
DX: H57.11 Ocular pain, right eye (principal); R21 Rash and other nonspecific skin eruption; H53.8 Other visual disturbances; R51.9 Headache, unspecified; R20.2 Paresthesia of skin
CPT/HCPCS: 70450-TC; 99285-25; J0131